=== PATIENT | female | born 1930 | race Caucasian/White ===

== ENCOUNTER 2016-06-16 12:59 | Inpatient (IN) ==
[2016-06-16] MEDS ORDERED: ONDANSETRON 4 MG/2 ML VIAL IV ONE ×2 (13:06→16:05)
[2016-06-16] MEDS: HYDROmorphone 2 MG/ML SYRINGE IV PRN ×2 (13:13→14:36)
[2016-06-16] MEDS ORDERED: 0.9 % SODIUM CHLORIDE 1,000 ML IV ONE (13:59)
[2016-06-16 14:13] LABS: Basophils # (Auto) 0 K/mcL (0.0-0.3); Basophils % (Auto) 0.3 % (0.0-2.0); Eosinophils # (Auto) 0 K/mcL (0.0-0.7); Eosinophils % (Auto) 0.4 % (0.0-7.0); Granulocytes % (Auto) 86.4 % (38.0-78.0); Lymphocytes # (Auto) 0.4 K/mcL (1.5-4.8); Lymphocytes % (Auto) 6.1 % (15.5-49.0); Mean Cell Volume 88.5 fL (80.0-100.0); Mean Corpuscular HGB Conc 34.4 g/dL (31.0-36.0); Mean Corpuscular Hemoglobin 30.5 pg (26.0-34.0); Monocytes # (Auto) 0.5 K/mcL (0.1-0.9); Monocytes % (Auto) 6.8 % (1.0-9.0); Platelet Count 282 K/mcL (140-440); RBC 3.73 M/mcL (4.00-5.20); Red Cell Distribution Width 14.1 % (11.5-14.5)
[2016-06-16 14:29] LABS: ALT/SGPT 20 U/l (0-40); Albumin/Globulin Ratio 0.9 (1.0-2.3); Alkaline Phosphatase 67 U/L (39-117); Blood Urea Nitrogen 14 mg/dl (8-23)
[2016-06-16] MEDS ORDERED: POTASSIUM PHOSPHATE 40 MEQ in DEXTROSE 5% IN WATER 500 ML IV ONE (14:30)
--- NOTE | 2016-06-16 14:41 | Emergency Department Note ---
Fall HPI - General Chief Complaint: Fall Stated Complaint: right arm and hip pain Time Seen by Provider: 06/16/16 13:38 Source: EMS Mode of arrival: EMS - History of Present Illness HPI Narrative: 85-year-old female had fallen in the kitchen and was found by her son. She believes she tripped on something, did not have her walker with her. He states he drinks 2-3 drinks of alcohol every evening. This tenderness to the right hip. She denies head injury, no neck pain - Related Data Home Medications Medication Instructions Recorded Confirmed No Known Home Meds [No Known Home 09/02/15 06/16/16 Meds] Allergies Allergy/AdvReac Type Severity Reaction Status Date / Time No Known Drug Allergies Allergy Verified 11/17/15 14:21 Review of Systems All systems ED: reviewed and negative except as stated. Musculoskeletal: Reports: as per HPI, other (rt hip pain) Integumentary: Denies: rash Neurological: Denies: headache, weakness Psychiatric: Denies: anxiety Endocrine: Denies: fatigue Fall PMH - Past Medical History Medical history: Reports: other (A. fib, alcoholism) - Social History smoking status: Former smoker Alcohol use: Reports: None Drug use: Reports: none Physical Exam - General Limitations: no limitations General appearance: alert - Head Head exam: atraumatic - Eye Eye exam: Present: normal appearance - ENT ENT exam: normal exam, mucous membranes moist - Neck Neck exam: Present: normal inspection, full ROM - Chest Chest inspection: Present: normal inspection - Respiratory Respiratory exam: Present: normal lung sounds bilaterally. Absent: respiratory distress - Cardiovascular Cardiovascular exam: Present: regular rate, normal rhythm. Absent: bradycardia , tachycardia - Abdominal Exam Abdominal exam: Present: soft. Absent: distention - Expanded Lower Extremity Exam Hip/Pelvis exam: Present: tenderness, deformity Upper leg exam: Present: normal inspection, full ROM Knee exam: Present: normal inspection, full ROM Lower leg exam: Present: normal inspection, full ROM Ankle exam: Present: normal inspection, full ROM Foot/toe exam: Present: normal inspection, full ROM Neurovascular/Tendon exam: Present: normal capillary refill - Back Exam Back exam: Present: normal inspection, full ROM - Neurological Exam Neurological exam: Present: alert, oriented X3, CN II-XII intact - Psychiatric Psychiatric exam: Present: normal affect, normal mood - Skin Skin exam: Present: warm, dry Course Vital Signs Temperature 98.4 F 06/16/16 13:00 Pulse Rate 91 H 06/16/16 13:00 Respiratory Rate 16 06/16/16 13:00 Blood Pressure 148/77 06/16/16 13:00 Pulse Oximetry (%) 98 06/16/16 13:00 Temperature 98.4 F 06/16/16 13:00 Pulse Rate 81 06/16/16 14:15 Respiratory Rate 16 06/16/16 13:00 Blood Pressure 148/74 06/16/16 14:15 Pulse Oximetry (%) 98 06/16/16 14:15 Fall - MDM Narrative Medical decision making narrative: X-rays show a right hip fracture intertrochanter, Dr. Garrett contacted and Dr. Garrett here to evaluate with preop has been ordered at the potassium was 2.9 and we've given her a k rekha - Lab Data Result diagrams: 06/16/16 13:25 06/16/16 13:25 Lab Results 06/16/16 06/16/16 06/16/16 Range/Units 13:25 13:25 13:25 WBC 7.0 (4.5-11.0) K/mcL RBC 3.73 L (4.00-5.20) M/mcL Hgb 11.4 L (12.0-15.0) g/dL Hct 33.0 L (36.0-48.0) % MCV 88.5 (80.0-100.0) fL MCH 30.5 (26.0-34.0) pg MCHC 34.4 (31.0-36.0) g/dL RDW 14.1 (11.5-14.5) % Plt Count 282 (140-440) K/mcL MPV 9.8 (7.4-10.4) fL Gran % 86.4 H (38.0-78.0) % Lymph % (Auto) 6.1 L (15.5-49.0) % [place] % (Auto) 6.8 (1.0-9.0) % Eos % (Auto) 0.4 (0.0-7.0) % Baso % (Auto) 0.3 (0.0-2.0) % Gran # 6.1 (1.8-8.0) K/mcL Lymph # 0.4 L (1.5-4.8) K/mcL [place] # 0.5 (0.1-0.9) K/mcL Eos # 0 (0.0-0.7) K/mcL Baso # 0 (0.0-0.3) K/mcL PT 13.6 (11.9-14.5) sec INR 1.0 (0.9-1.1) Sodium 135 (133-145) mmol/L Potassium 2.9 L* (3.3-5.1) mmol/L Chloride 95 L (96-108) mmol/L Carbon Dioxide 23 (22-30) mmol/L Anion Gap 17.0 H (8-16) BUN 14 (8-23) mg/dl Creatinine 0.9 (0.6-1.1) mg/dl GFR Calculation 57 Glucose 99 (70-105) mg/dL Calcium 8.8 (8.6-10.4) mg/dl Total Bilirubin 0.6 (0.0-1.0) mg/dL AST 52 H (0-37) U/l ALT 20 (0-40) U/l Alkaline Phosphatase 67 (39-117) U/L Total Protein 6.2 (5.9-8.4) gm/dL Albumin 3.0 L (3.2-5.2) gm/dL Globulin 3.2 (2.2-3.7) gm/dL Albumin/Globulin Ratio 0.9 L (1.0-2.3) Disposition Clinical Impression: Hypokalemia Hip fracture Qualifiers: Encounter type: initial encounter Fracture type: closed Laterality: right Qualified Code(s): S72.001A - Fracture of unspecified part of neck of right femur, initial encounter for closed fracture Disposition: Xfer As Outpt/Obs ([facility]) Condition: Good Referrals: Anthony Reed MD [Primary Care Provider] - Time of Disposition: 14:46
[2016-06-16] MEDS ORDERED: POTASSIUM CHLORIDE 40 MEQ in DEXTROSE 5% IN WATER 500 ML IV ONE (14:45)
[2016-06-16] MEDS ORDERED: ceFAZolin 1 GM VIAL ONE (15:51)
[2016-06-16 15:55] LABS: Appearance,Urine CLEAR; Bacteria,Urine 0 /hpf (0); Bilirubin,Urine NEG (NEG); Color,Urine STRAW; Glucose,Urine (UA) NEGATIVE (NEG); Leukocyte Esterase,Urine NEG /uL (NEG); Nitrate,Urine NEG (NEG); Protein,Urine NEG (NEG); Specific Gravity,Urine 1.004 (1.000-1.035); Urine Blood 0.03 mg/dL (<0.03); Urine RBC 1 /hpf (0-1); Urine Squamous Epithelial Cell < 1 /hpf (0-4); Urine WBC 2 /hpf (0-4); Urobilinogen,Urine NEG (NEG)
[2016-06-16] MEDS ORDERED: ceFAZolin 1 GM VIAL IV SCH (16:00)
[2016-06-16] MEDS ORDERED: TRANEXAMIC ACID 1,000 MG/10 ML VIAL IV ONE ×2 (16:05→17:10)
[2016-06-16] MEDS ORDERED: LIDOCAINE HCL/PF 100 MG/5 ML SYRINGE IV ONE (16:05)
[2016-06-16] MEDS ORDERED: GLYCOPYRROLATE 0.2 MG/ML VIAL IV ONE (16:05)
[2016-06-16] MEDS ORDERED: KETAMINE 100 MG/ML ML IV ONE (16:05)
[2016-06-16] MEDS ORDERED: PHENYLEPHRINE 10 MG/ML VIAL IV ONE (16:05)
[2016-06-16] MEDS ORDERED: MIDAZOLAM 5 MG/5 ML VIAL IV ONE (16:05)
[2016-06-16] MEDS ORDERED: PROPOFOL 200 MG/20 ML VIAL IV ONE (16:05)
[2016-06-16] MEDS ORDERED: fentaNYL 100 MCG/2 ML VIAL IV ONE ×2 (16:05→17:21)
[2016-06-16] MEDS ORDERED: IPRATROPIUM/ALBUTEROL 3 ML AMPUL.NEB NEB PRN (16:26)
[2016-06-16] MEDS ORDERED: NALOXONE HCL 0.4 MG/ML VIAL IV PRN (16:26)
[2016-06-16] MEDS ORDERED: PROMETHAZINE 25 MG/ML VIAL IV PRN (16:26)
[2016-06-16] MEDS ORDERED: ePHEDrine 50 MG/ML AMPUL IV PRN (16:26)
[2016-06-16] MEDS ORDERED: METHOCARBAMOL 1,000 MG/10 ML VIAL IV PRN (16:26)
[2016-06-16] MEDS ORDERED: HYDROmorphone 2 MG/ML SYRINGE IV PRN ×2 (16:26→17:10)
[2016-06-16] MEDS ORDERED: MEPERIDINE 25 MG/ML SYRINGE IV PRN (16:26)
[2016-06-16] MEDS ORDERED: BENZOCAINE/MENTHOL 1 LOZENGE PO PRN ×2 (16:26→17:10)
[2016-06-16] MEDS ORDERED: LABETALOL 5 MG/ML ML IV PRN (16:26)
[2016-06-16] MEDS ORDERED: FLUMAZENIL 0.1 MG/ML ML IV PRN (16:26)
[2016-06-16] MEDS ORDERED: LACTATED RINGERS 1,000 ML IV SCH (16:30)
[2016-06-16] MEDS ORDERED: KETOROLAC 15 MG/ML VIAL IV PRN (17:10)
[2016-06-16] MEDS ORDERED: BISACODYL 10 MG SUPP.RECT PR PRN (17:10)
[2016-06-16] MEDS ORDERED: ONDANSETRON 4 MG/2 ML VIAL IV PRN (17:10)
[2016-06-16] MEDS ORDERED: POLYETHYLENE GLYCOL 3350 17 GM PACKET PO PRN (17:10)
[2016-06-16] MEDS ORDERED: MAGNESIUM HYDROXIDE 30 ML ORAL.SUSP PO PRN (17:10)
[2016-06-16] MEDS ORDERED: FLEETS ADULT ENEMA PR PRN (17:10)
[2016-06-16] MEDS ORDERED: ACETAMINOPHEN 325 MG TABLET PO PRN (17:10)
--- NOTE | 2016-06-16 17:10 | Brief Operative Note ---
Date of procedure: 06/16/16 Pre-op diagnosis: right intertroch hip fracture 3 part Post-op diagnosis: same Procedure: right hip intertroch hip fracture open and fix with IM nailing Grafts/Implants: Yes Anesthesia: GETA Findings: above Complications: none Surgeon: Cheikh Webster Claims Adjuster Crop: Richi Nunez Estimated blood loss (cc): 50 Specimens Removed/Pathology: none sent Condition: stable Disposition: PACU
[2016-06-16] MEDS: fentaNYL 100 MCG/2 ML VIAL IV PRN ×2 (17:22→17:25)
[2016-06-16] MEDS ORDERED: METHOCARBAMOL 1,000 MG/10 ML VIAL ONE ×2 (17:25→17:30)
[2016-06-16] MEDS ORDERED: LABETALOL HCL 20 MG/4 ML SYRINGE IV ONE (17:32)
[2016-06-16] MEDS: 0.45 % SODIUM CHLORIDE 1,000 ML IV SCH (18:50)
[2016-06-16] MEDS ORDERED: TEMAZEPAM 15 MG CAPSULE PO PRN (21:00)
[2016-06-16] MEDS: ASPIRIN 325 MG ENTERIC COATED TABLET PO SCH (21:22)
[2016-06-16] MEDS: DOCUSATE SODIUM 100 MG CAPSULE PO SCH (21:23)
[2016-06-16] MEDS: SENNOSIDES 1 TABLET PO SCH (21:23)
[2016-06-16] MEDS: HYDROCODONE/APAP 7.5/325MG TABLET PO PRN (21:29)
[2016-06-16] MEDS: 0.9 % SODIUM CHLORIDE 10 ML SYRINGE IV SCH (21:31)
[2016-06-16] MEDS: ceFAZolin 1 GM VIAL IV SCH (23:37)
[2016-06-17] MEDS: HYDROCODONE/APAP 7.5/325MG TABLET PO PRN ×3 (03:51→14:45)
[2016-06-17] MEDS: 0.45 % SODIUM CHLORIDE 1,000 ML IV SCH ×2 (04:28→14:52)
--- NOTE | 2016-06-17 05:39 | XRay Report ---
CLINICAL INFORMATION: Trauma COMPARISON: None. FINDINGS: Mildly impacted intertrochanteric fracture right hip with marked coxa vera angulation is appreciated. The femoral diaphysis also displaced posteriorly less than 1 cm. Both hips are normal in width and alignment without arthritic change. Mild degenerative change seen in the SI joints. Marked soft tissue swelling over the fracture site noted IMPRESSION: Acute intertrochanteric fracture right hip with marked coxa vera angulation and mild impaction Interpreted and Authenticated by: Kei Garcia 06/17/16
--- NOTE | 2016-06-17 05:40 | XRay Report ---
CLINICAL INFORMATION: Trauma - hip fracture COMPARISON: 04/11/2015 FINDINGS: Moderate cardiomegaly is unchanged. Mediastinum and pulmonary vessels are normal. The lungs are clear. No definite effusion. Bones soft tissues are unremarkable IMPRESSION: Stable cardiomegaly. No acute cardiopulmonary disease or posttraumatic change Interpreted and Authenticated by: Kei Garcia 06/17/16
--- NOTE | 2016-06-17 05:51 | XRay Report ---
CLINICAL INFORMATION: Postop right intertrochanteric hip fracture COMPARISON: Preoperative study 06/16/2016 1316 hours FINDINGS: Acute right subtrochanteric fracture has been reduced to anatomic alignment and now transfixed by intramedullary screw and short IM siobhan. All relationships are anatomic. Both hips are normal in width and alignment without arthritic change. Mild degenerative change seen in the SI joints. Soft tissue swelling over the surgical site seen as expected IMPRESSION: Status post ORIF subtrochanteric fracture right hip - now anatomically aligned Interpreted and Authenticated by: Kei Garcia 06/17/16
--- NOTE | 2016-06-17 08:01 | XRay Report ---
CLINICAL INFORMATION: Reason for Exam:GAMMA NAIL INTRA OP COMPARISON: None. FINDINGS: Multiple digital images from the OR are submitted. These show subtrochanteric fracture reduced to anatomic alignment and transfixed by intramedullary screw and IM siobhan. Alignment is anatomic IMPRESSION: ORIF subtrochanteric fracture. Alignment is anatomic Interpreted and Authenticated by: Kei Garcia 06/17/16
[2016-06-17] MEDS: 0.9 % SODIUM CHLORIDE 10 ML SYRINGE IV SCH ×3 (08:10→20:25)
--- NOTE | 2016-06-17 08:28 | Orthopedic Progress Note ---
Subjective Patient information: Note initiated : 06/17/16 at 8:26 am Service Date, if different from initiated Date: [] Patient: Odalis Ac 85 y/o F admitted on 06/16/16 for right arm and hip pain. Chief Complaint: [alert and sitting with minimal pain] Objective Vital signs: Vital Signs Temp Pulse Resp BP BP Pulse Ox 06/17/16 07:03 98.6 F 66 14 102/52 99 06/17/16 03:45 100 06/17/16 03:43 99.2 F 81 16 129/72 100 06/17/16 01:52 100 06/17/16 00:00 100 06/16/16 22:31 97.7 F 20 133/68 100 06/16/16 22:00 100 06/16/16 20:28 98.5 F 20 142/82 167/71 100 06/16/16 20:00 98.5 F 20 167/71 97 06/16/16 19:10 100 Intake and Output 06/16/16 06/17/16 06/17/16 21:59 05:59 13:59 Intake Total 120 / 1320 1163 / 1163 Output Total 325 / 325 Balance 120 / 1070 838 / 838 Intake: IV 963 / 963 Sodium Chloride 0.45% 1, 963 / 963 000 ml @ 100 mls/hr IV . Q10H [facility] Rx#:[id number] Oral 120 / 120 200 / 200 Output: Urine Catheter Amount 325 / 325 Other: Weight 115 lb Intake & Output: Intake & Output 06/16/16 06/17/16 06/17/16 21:59 05:59 13:59 Intake Total 120 / 1320 1163 / 1163 Output Total 325 / 325 Balance 120 / 1070 838 / 838 Weight 115 lb Intake: IV 963 / 963 Sodium Chloride 0.45% 1, 963 / 963 000 ml @ 100 mls/hr IV . Q10H [facility] Rx#:[id number] Oral 120 / 120 200 / 200 Output: Urine Catheter Amount 325 / 325 Incision: Yes healing Incision clean and dry: Yes Dressing: Yes clean Weight bearing status: full Neurological exam IM: Yes abnormal gait, Yes oriented X3 Extremities exam IM: Yes Foot pink and warm - Labs CBC & BMP: 06/17/16 05:26 06/16/16 13:25 Labs: 06/17/16 05:26 Hct 27.6 L
[2016-06-17] MEDS: ceFAZolin 1 GM VIAL IV SCH (08:48)
[2016-06-17] MEDS: DOCUSATE SODIUM 100 MG CAPSULE PO SCH ×2 (08:48→20:19)
[2016-06-17] MEDS: ASPIRIN 325 MG ENTERIC COATED TABLET PO SCH ×2 (08:48→20:19)
[2016-06-17] MEDS: METHOCARBAMOL 500 MG TABLET PO PRN (20:19)
[2016-06-17] MEDS: SENNOSIDES 1 TABLET PO SCH (20:19)
[2016-06-18] MEDS: 0.45 % SODIUM CHLORIDE 1,000 ML IV SCH ×3 (01:12→21:13)
[2016-06-18] MEDS: HYDROCODONE/APAP 7.5/325MG TABLET PO PRN ×4 (01:15→16:08)
[2016-06-18] MEDS: 0.9 % SODIUM CHLORIDE 10 ML SYRINGE IV SCH ×3 (07:12→23:03)
[2016-06-18] MEDS: DOCUSATE SODIUM 100 MG CAPSULE PO SCH ×2 (09:27→21:11)
[2016-06-18] MEDS: ASPIRIN 325 MG ENTERIC COATED TABLET PO SCH ×2 (09:27→21:11)
--- NOTE | 2016-06-18 09:46 | Operative Note ---
DATE OF OPERATION: 06/16/2016 PREOPERATIVE DIAGNOSIS: Right intertrochanteric hip fracture, three-part. POSTOPERATIVE DIAGNOSIS: Right intertrochanteric hip fracture, three-part. PROCEDURE: Right intertrochanteric hip fracture open reduction and internal fixation with an IM nailing. SURGEON: Cheikh Webster MD. CLINICAL FACULTY: Richi Nunez PA-C. ANESTHESIA: General LMA anesthesia. COMPLICATIONS: None. ESTIMATED BLOOD LOSS: About 50 mL. No blood products were given. IMPLANTS: A Gamma nail, 34 cm in length with a 90 mm dynamic compression screw which was locked into place after compressing the fracture. DESCRIPTION OF PROCEDURE: The patient was brought to the operating room and put to sleep with general LMA anesthesia. Once asleep, the patient had the right leg sterilely prepped and draped in the usual sterile fashion. This was confirmed as the operative leg. Tranexamic acid was given and preop antibiotics were given. Once this was done, we then reduced the fracture using the fracture table. Image was brought in. After sterilely prepped and draped the right extremity we confirmed the operative site and reduction. We then made a superior posterior approach to the hip using the superior iliac spine and the posterior edge of the greater trochanter. Once this was done, we then incised through the fascial layer and placed a protective sheath and then a guidewire centrally into the greater trochanter and into the center portion of the shaft. We then placed a pin. We then reamed to the size proximally. We then reamed up to a size 12 for the Gamma nail. This was inserted 34 cm Gamma nail at 125 degree angle. We then placed the cannulated screw after placing a central screw into the head and neck. I then placed a central pin. This was reamed to a depth of 90 mm, and a 90 mm screw was placed and the fracture was compressed. We then locked this into position as the dynamic compression screw was placed centrally in the head. Once this was done, we then locked the shaft into place at the end of the long Gamma nail using image. We placed one screw in the dynamic compression hole after identifying the location. An incision was made. This was drilled and a 45 mm locking screw placed. The patient tolerated this well. We irrigated, confirmed the operative sites, closed the wound with 2-0 Vicryl. Sterile bandage was applied. REED:alexandra Job ID: [id number] Doc ID: [id number] Cheikh Webster MD
--- NOTE | 2016-06-18 09:51 | Consultation ---
DATE OF CONSULTATION: 06/16/2016 CHIEF COMPLAINT: Right intertrochanteric fracture. HISTORY OF PRESENT ILLNESS: The patient fell onto the left hip, had immediate pain and swelling, was seen in the emergency room and x-rays were taken that demonstrated intertrochanteric hip fracture which is displaced with significant osteopenia. PAST MEDICAL HISTORY: She has been a fairly active 76-year-old, patient of Dr. Kuo. She has had some hypertension and the remainder her history and physical per emergency room physician. PHYSICAL EXAM: GENERAL: She is an 85-year-old who is fairly short, thin and frail. EXTREMITIES: Demonstrates a deformity of the right leg with external rotation and shortening. The foot is pink and warm. LUNGS: Clear to auscultation. CARDIOVASCULAR: Regular rate and rhythm. No murmurs, rubs, or gallops. RADIOGRAPHIC STUDIES: Right leg x-rays that were taken here at [facility] that demonstrate an intertrochanteric fracture, displaced, an AP pelvis of both hips. The right hip is displaced with age-related osteopenia. PLAN: We reviewed the risks and benefits. Some of these risks and benefits include the ability to walk early and prevent blood clots. The risk of the surgery is that she could have a PE, stroke, heart attack and even . She agrees to proceed given the severity of the pain and the fact it is much safer to fix these than to not. This will be done in the near future. She last ate breakfast she states. REED:aroldo Job ID: [id number] Doc ID: [id number] Cheikh Webster MD
--- NOTE | 2016-06-18 18:11 | Orthopedic Progress Note ---
Subjective Patient information: Note initiated : 06/18/16 at 6:08 pm Service Date, if different from initiated Date: [] Patient: Odalis Ac 85 y/o F admitted on 06/16/16 for Fall, Right Arm and Hip Pain/Rt Hip Fracture. Chief Complaint: [less pain] Objective Vital signs: Vital Signs Temp Pulse Pulse Resp BP Pulse Ox 06/18/16 16:00 97.7 F 114 H 12 94/53 97 06/18/16 11:54 98 F 86 18 145/73 99 06/18/16 08:00 97.7 F 80 18 148/78 97 06/18/16 07:35 84 96 06/18/16 04:00 97.8 F 84 96 06/17/16 23:54 97.9 F 96 H 14 128/68 96 06/17/16 20:00 98.0 F 105 H 14 135/71 96 Intake and Output 06/18/16 06/18/16 06/18/16 05:59 13:59 21:59 Intake Total 1000 / 1000 1000 / 1000 300 / 300 Output Total 250 / 250 Balance 750 / 750 1000 / 1000 300 / 300 Intake: IV 1000 / 1000 1000 / 1000 Sodium Chloride 0.45% 1, 1000 / 1000 1000 / 1000 000 ml @ 100 mls/hr IV . Q10H [facility] Rx#:[id number] Oral 300 / 300 Output: Urine Catheter Amount 250 / 250 Other: Meal Lunch Percent of Meal Consumed 50% Intake & Output: Intake & Output 06/18/16 06/18/16 06/18/16 05:59 13:59 21:59 Intake Total 1000 / 1000 1000 / 1000 300 / 300 Output Total 250 / 250 Balance 750 / 750 1000 / 1000 300 / 300 Intake: IV 1000 / 1000 1000 / 1000 Sodium Chloride 0.45% 1, 1000 / 1000 1000 / 1000 000 ml @ 100 mls/hr IV . Q10H [facility] Rx#:[id number] Oral 300 / 300 Output: Urine Catheter Amount 250 / 250 Other: Meal Lunch Percent of Meal Consumed 50% Incision: Yes healing Incision clean and dry: Yes Dressing: Yes clean Weight bearing status: full Neurological exam IM: Yes oriented X3, Yes neurovascular intact Extremities exam IM: Yes pedal edema, Yes Foot pink and warm - Labs CBC & BMP: 06/17/16 05:26 06/16/16 13:25 Labs: 02/12/17 05:26 Hct 27.6 L
[2016-06-18] MEDS: SENNOSIDES 1 TABLET PO SCH (21:10)
[2016-06-19] MEDS: HYDROCODONE/APAP 7.5/325MG TABLET PO PRN ×2 (01:30→08:13)
[2016-06-19] MEDS: METHOCARBAMOL 500 MG TABLET PO PRN (04:07)
[2016-06-19] MEDS: 0.9 % SODIUM CHLORIDE 10 ML SYRINGE IV SCH (06:33)
[2016-06-19] MEDS: 0.45 % SODIUM CHLORIDE 1,000 ML IV SCH (07:05)
--- NOTE | 2016-06-19 07:30 | Orthopedic Progress Note ---
Subjective Patient information: Note initiated : 06/19/16 at 7:27 am Service Date, if different from initiated Date: [] Patient: Odalis Ac 85 y/o F admitted on 06/16/16 for Fall, Right Arm and Hip Pain/Rt Hip Fracture. Chief Complaint: [Pt is stable this morning on post operative day 1 without any significant concerns or complaints. Patients vital signs have remained stable. Patients dressing is dry and exhibits a grossly intact neurovascular and neuromotor exam. Patients 10 point ROS is otherwise negative. ] Objective Vital signs: Vital Signs Temp Pulse Pulse Pulse Resp BP Pulse Ox 06/19/16 07:17 104 H 06/19/16 03:18 97.4 F L 112 H 24 112/60 96 06/18/16 23:03 97.3 F L 115 H 24 154/74 98 06/18/16 20:00 98.1 F 114 H 24 151/71 99 06/18/16 16:00 97.7 F 114 H 12 94/53 97 06/18/16 11:54 98 F 86 18 145/73 99 06/18/16 08:00 97.7 F 80 18 148/78 97 06/18/16 07:35 84 96 Intake and Output 06/18/16 06/19/16 06/19/16 21:59 05:59 13:59 Intake Total 1670 / 1670 1000 / 1000 987 / 987 Output Total 475 / 475 400 / 400 Balance 1195 / 1195 600 / 600 987 / 987 Intake: IV 970 / 970 987 / 987 Sodium Chloride 0.45% 1, 970 / 970 987 / 987 000 ml @ 100 mls/hr IV . Q10H [facility] Rx#:[id number] Oral 700 / 700 1000 / 1000 Output: Urine Catheter Amount 475 / 475 400 / 400 Other: Meal Dinner Percent of Meal Consumed 25% Feeding Ability Independent Weight 117 lb Intake & Output: Intake & Output 06/18/16 06/19/16 06/19/16 21:59 05:59 13:59 Intake Total 1670 / 1670 1000 / 1000 987 / 987 Output Total 475 / 475 400 / 400 Balance 1195 / 1195 600 / 600 987 / 987 Weight 117 lb Intake: IV 970 / 970 987 / 987 Sodium Chloride 0.45% 1, 970 / 970 987 / 987 000 ml @ 100 mls/hr IV . Q10H [facility] Rx#:[id number] Oral 700 / 700 1000 / 1000 Output: Urine Catheter Amount 475 / 475 400 / 400 Other: Meal Dinner Percent of Meal Consumed 25% Feeding Ability Independent Incision clean and dry: Yes Dressing: Yes clean, Yes dry Weight bearing status: full Neurological exam IM: Yes motor sensory intact, Yes neurovascular intact Extremities exam IM: Yes Foot pink and warm, Yes neurovascular intact - Labs CBC & BMP: 06/17/16 05:26 06/16/16 13:25 Labs: 06/17/16 05:26 Hct 27.6 L Assessment and Plan (1) Hip fracture Patient has been educated regarding wound care and dressings, follow up recommendations, and medication use. We will f/u with the patient within 2-3 weeks for wound check. Status: Acute Qualifiers: Encounter type: initial encounter Fracture type: closed Laterality: right Qualified Code(s): S72.001A - Fracture of unspecified part of neck of right femur, initial encounter for closed fracture
[2016-06-19] MEDS: ASPIRIN 325 MG ENTERIC COATED TABLET PO SCH (08:13)
[2016-06-19] MEDS: DOCUSATE SODIUM 100 MG CAPSULE PO SCH (08:13)
--- NOTE | 2016-07-24 16:42 | Discharge Summary ---
DATE OF ADMISSION: 06/16/2016 DATE OF DISCHARGE: 06/19/2016 ADMITTING DIAGNOSIS: Right intertrochanteric hip fracture. DISCHARGE DIAGNOSIS: Right intertrochanteric hip fracture with intermedullary nail open reduction internal fixation. PROCEDURE PERFORMED: Right hip ORIF. The procedure went without complications. Following the procedure, the patient was taken to recovery in stable condition and then transferred to the hospital floor. HOSPITAL COURSE: The patient's vital signs remained stable throughout her hospital course, including stable hemoglobin and hematocrit. She was evaluated throughout her hospital stay by physical therapy who were able to get her up and ensure that she was ambulatory to the point of getting in and out of bed and to the chair, as well as to the commode. There were no hospital incidents throughout her hospital course. She remained neurovascularly stable and intact. She met the discharge criteria for home discharge on the date of discharge which was 06/19/2016. She received standard home medications, follow up recommendations, precautions and guidelines, as well as patient information regarding her diagnosis on discharge. She was discharged with a stable physical exam. The patient will follow up in 2 weeks from date of discharge with [facility] for postoperative wound care follow up. BAP:alexandra Job ID: [id number] Doc ID: [id number] Richi Nunez PA-C
== END 2016-06-19 10:36 | DRG 482 ==
LOC: ED 12:59 → SUR 15:33 → MEDSUR 18:10
PROVIDERS: ADMIT Orthopaedic Surgery; ATTEND Orthopaedic Surgery
PROC: ORIFHIP (2016-06-16 16:02)